=== PATIENT | female | born 1960 | race Caucasian/White ===

== ENCOUNTER → 2016-10-26 | Outpatient (CLI) | payer BC ==
--- NOTE | 2016-10-29 10:42 | MRI ---
HISTORY: RIGHT KNEE PAIN. EXAM: NON CONTRAST MRI EXAM OF THE RIGHT KNEE. TECHNIQUE: Multisequence and multiplanar T1 and T2 weighted sequences of the right knee were obtaine d without the administration of IV paramagnetic contrast at 1.5 Lorri. COMPARISON: None available. 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 There is focal susceptibility artifact seen just anterior to the medial patellar retinaculum which probably reflects postsurgical changes from prior orthopedic surg arabella. There is a low grade lateral femorotibial compartment chondromalacia. There is high-grade (Gra de III and Grade IV) medial knee compartment chondromalacia with bone marrow edema seen throughout t he medial femoral condyle and medial tibial plateau which is probably stress related with imaging fi ndings concerning for an early or developing tibial plateau stress fracture without evidence for dis placement. This is best seen on image number 20 of series 601. The ACL and PCL are both intact. Ther e is free edge fraying of the body and anterior horn of the medial meniscus. No displaced lateral me niscal tear is seen. There is distal quadriceps peritendinitis. There is diffuse patellar tendinosis . There is a chronic strain of the MCL with adjacent MCL edema. No other collateral ligament abnorma lity or injury is seen. There is a 2 x 1 centimeter posterior popliteal cyst with some fluid and tyree ma tracking inferiorly along the medial head of the gastrocnemius which can be seen with a leaking c yst. Periarticular edema is also seen. No other musculoskeletal injuries or abnormalities are observ ed. IMPRESSION: 1. Stress related bone marrow edema throughout the medial femoral condyle and medial tibial plateau with concern for an early medial plateau, nondisplaced, stress fracture. 2. Small knee joint effusion with high-grade medial knee compartment and patellofemoral chondromalac ia with focal, likely postoperative, anterior knee susceptibility artifact seen. 3. Free edge fraying of the anterior horn and body of the medial meniscus without evidence for a dis placed medial or lateral meniscal tear. No cruciate ligament tear appreciated. 4. Low grade, chronic, MCL strain. Quadriceps peritendinitis and patellar tendinosis. 5. 2 x 1 cm posterior popliteal cyst with some fluid and edema tracking inferiorly along the medial head of the gastrocnemius which can be seen with a leaking popliteal cyst. Reported By:
== END | disposition home or self-care (01) ==
LOC: RAD 14:10
PROVIDERS: ATTEND Specialist
DX: M17.0 Bilateral primary osteoarthritis of knee (principal); R60.0 Localized edema; M25.461 Effusion, right knee; M71.21 Synovial cyst of popliteal space [Baker], right knee
CPT/HCPCS: 73721